=== PATIENT | female | born 1980 | race Caucasian/White ===

== ENCOUNTER → 2016-10-22 | Outpatient (CLI) | payer MEDICAID | LOC: CIMAGING 10:12 | PROVIDERS: ATTEND Internal Medicine Nephrology | DX: R82.99 Other abnormal findings in urine (principal); R10.9 Unspecified abdominal pain | CPT/HCPCS: 76770-PO ==

== ENCOUNTER → 2016-12-15 | Outpatient (CLI) | payer MEDICAID | LOC: FIMAGING 16:07 | PROVIDERS: ATTEND Registered Nurse | DX: S62.305A Unspecified fracture of fourth metacarpal bone, left hand, initial encounter for closed fracture (principal) ==

== ENCOUNTER → 2017-09-08 | Outpatient (CLI) | payer MEDICAID | LOC: FIMAGING 11:41 | PROVIDERS: ATTEND Family Medicine | DX: M25.531 Pain in right wrist (principal) ==